=== PATIENT | male | born 1945 | race Caucasian/White ===

== ENCOUNTER 2022-11-05 02:44 | Inpatient (IN) | payer MEDICARE, BC ==
[2022-11-05] MEDS ORDERED: 50% Dextrose in Water 50 ML Syringe IVPUSH ONE ×4 (02:53→11:24)
[2022-11-05] MEDS ORDERED: Sodium Chloride 0.9% 10 ML Syringe FLUSH PRN (02:58)
[2022-11-05] MEDS ORDERED: Dextrose 5%-0.45% NaCl 1,000 ML IV SCH (03:00)
[2022-11-05 03:23] LABS: ESTIMATED GFR 63 mL/min (>60); TROPONIN I HIGH SENSITIVITY 10.1 pg/mL (<=60.3)
[2022-11-05] MEDS ORDERED: Potassium Chloride 10 MEQ in Premix Bag 1 BAG IV ONE (03:29)
[2022-11-05] MEDS ORDERED: Acetaminophen 500 MG Tab PO ONE (04:52)
[2022-11-05] MEDS ORDERED: 50% Dextrose in Water 50 ML Syringe ONE (07:11)
[2022-11-05] MEDS ORDERED: Dextrose 5%-Lact Ringers w/KCl 1,000 ML IV SCH (10:00)
[2022-11-05] MEDS ORDERED: Melatonin 3 MG Tab PO PRN (11:09)
[2022-11-05] MEDS ORDERED: oxyCODONE 5 MG Tab PO PRN (11:09)
[2022-11-05] MEDS ORDERED: Ondansetron 4 MG/2 ML SDV IV PRN (11:09)
[2022-11-05] MEDS ORDERED: Ondansetron 4 MG Tab.DIS PO PRN (11:09)
[2022-11-05] MEDS ORDERED: 50% Dextrose in Water 50 ML Syringe IV PRN (11:51)
[2022-11-05] MEDS ORDERED: Potassium Chloride 20 MEQ Tab.ER PO ONE ×2 (12:00→17:30)
[2022-11-05] MEDS: amLODIPine 5 MG Tab PO SCH (12:47)
[2022-11-05] MEDS: Losartan 50 MG Tab PO SCH (12:47)
[2022-11-05] MEDS: Aspirin 81 MG Tab.EC PO SCH (12:47)
[2022-11-05] MEDS ORDERED: Sodium Chloride 23.4% 154 MEQ in Dextrose 10% in Water 1,000 ML IV SCH ×2 (14:00)
[2022-11-05] MEDS: WATER IV SCH ×2 (14:45→19:53)
[2022-11-05] MEDS: SODIUM CHLORIDE IV SCH ×2 (14:45→19:53)
[2022-11-05] MEDS: DEXTROSE IV SCH ×2 (14:45→19:53)
[2022-11-05] MEDS: Hydroxychloroquine 200 MG Tab PO SCH (17:02)
[2022-11-05] MEDS ORDERED: Sodium Chloride 0.65% Nasal Spray 45 ML Bottle NAS PRN (20:05)
[2022-11-06] MEDS: Acetaminophen 325 MG Tab PO PRN ×2 (00:05→23:59)
[2022-11-06] MEDS: WATER IV SCH ×2 (01:01→06:08)
[2022-11-06] MEDS: DEXTROSE IV SCH ×2 (01:01→06:08)
[2022-11-06] MEDS: SODIUM CHLORIDE IV SCH ×2 (01:01→06:08)
[2022-11-06] MEDS: Hydroxychloroquine 200 MG Tab PO SCH ×2 (07:44→17:15)
[2022-11-06] MEDS: Aspirin 81 MG Tab.EC PO SCH (08:57)
[2022-11-06] MEDS: Losartan 50 MG Tab PO SCH (08:57)
[2022-11-06] MEDS: amLODIPine 5 MG Tab PO SCH (08:57)
[2022-11-06] MEDS ORDERED: Loperamide 2 MG Cap PO PRN (14:39)
[2022-11-06] MEDS ORDERED: Loperamide 2 MG Cap PO ONE (15:00)
[2022-11-07] MEDS: Hydroxychloroquine 200 MG Tab PO SCH (07:42)
[2022-11-07] MEDS: amLODIPine 5 MG Tab PO SCH (08:56)
[2022-11-07] MEDS: Losartan 50 MG Tab PO SCH (08:56)
[2022-11-07] MEDS: Aspirin 81 MG Tab.EC PO SCH (08:57)
== END 2022-11-07 13:05 | disposition home or self-care (01) | DRG 641 ==
LOC: JP.ED 02:44 → JP.2SS 10:24
PROVIDERS: ADMIT Internal Medicine; ATTEND Internal Medicine
DX: E87.6 Hypokalemia (principal); Z88.8 Allergy status to other drugs, medicaments and biological substances; E11.649 Type 2 diabetes mellitus with hypoglycemia without coma; R19.7 Diarrhea, unspecified; Z79.899 Other long term (current) drug therapy; Z20.822 Contact with and (suspected) exposure to COVID-19; I10 Essential (primary) hypertension; H54.7 Unspecified visual loss; E11.42 Type 2 diabetes mellitus with diabetic polyneuropathy; D64.9 Anemia, unspecified; Z79.84 Long term (current) use of oral hypoglycemic drugs; Z88.6 Allergy status to analgesic agent; Z79.82 Long term (current) use of aspirin; Z90.49 Acquired absence of other specified parts of digestive tract; Z79.4 Long term (current) use of insulin
CPT/HCPCS: 36415; 80053; 82947 ×4; 83605; 83690; 83735; 84145; 84484; 85025; 93005; 96361; 96365; 96366; 96374; 96375; 96376; 99285; A9270; J3480; J3490; J7042; U0002; 80048; 87493; J7131